=== PATIENT | male | born 2000 | race Caucasian/White ===

== ENCOUNTER 2023-12-07 06:41 | Outpatient (REF) | payer OTHER, SELFPAY ==
--- NOTE | ~2023-12-07 | US_ITS ---
EXAMINATION: US CHEST CLINICAL INFORMATION: Palpable lump at the xiphoid. COMPARISON: None available. TECHNIQUE: Targeted sonography over the chest at the level of the xiphoid and distal sternum. FINDINGS: In the area of palpable concern only normal fat echotexture is seen. No solid or cystic lesions are observed. If symptoms continue, thin section CT of the area could be done. US/US chest IMPRESSION: Unremarkable examination. Electronically signed by: Gene Dixon MD 12/08/2023 04:33 PM EDT
== END 2023-12-07 06:42 | disposition home or self-care (01) ==
LOC: HO.UMASIMG 06:41
PROVIDERS: Visit Provider Internal Medicine
DX: R22.2 Localized swelling, mass and lump, trunk (principal)
CPT/HCPCS: 76604